=== PATIENT | male | born 1970 | race Caucasian/White ===

== ENCOUNTER 2016-12-08 08:36 | Emergency (ER) | payer OTHER ==
[2016-12-08 12:46] VITALS: BP 112/58
== END 2016-12-08 14:35 | disposition home or self-care (01) ==
LOC: ED 14:00
DX: F10.120 Alcohol abuse with intoxication, uncomplicated (principal)
CPT/HCPCS: 99283

== ENCOUNTER 2016-12-30 18:40 | Emergency (ER) | payer OTHER ==
[~2016-12-30] VITALS: Ht 167.6 cm; Wt 80.0 kg
[2016-12-30 23:20] VITALS: BP 122/76
[2016-12-30] MEDS ORDERED: LORazepam 1MG TABLET PO ONE (23:30)
[2016-12-31] MEDS ORDERED: LORazepam 2 MG/ML, 1ML IVPush PRN
[2016-12-31] MEDS ORDERED: SODIUM CHLORIDE 0.9% 1,000ML IVBOLUS ONE
[2016-12-31] MEDS ORDERED: LORazepam 1MG TABLET ONE (00:24)
== END 2016-12-31 01:13 | disposition home or self-care (01) ==
LOC: ED 23:59
DX: F10.220 Alcohol dependence with intoxication, uncomplicated (principal)
CPT/HCPCS: 36415; 80307; 93005; 96360; 96361; 99285; J7030; G0479